=== PATIENT | male | born 1965 | race Caucasian/White ===

== ENCOUNTER → 2021-09-26 | Day surgery (SDC) | payer OTHER ==
[~2021-09-26] VITALS: Ht 195.6 cm; Wt 103.0 kg
[~2021-09-26] MED LIST: HYDROmorphone 2 MG/ML INJ. IVP PRN; IV RINGERS,LACTATED 1000ML 1,000 ML IV SCH; LEVO50TA PO; LIDOCAINE 2% PF 5 ML VIAL. ONE; MORPHINE SULFATE 2 MG/ML INJ. IVP PRN; PROCHLORPERAZINE 10 MG/2 ML VIAL. IVP PRN; PROPOFOL 10 MG/ML (20ML) VIAL. IV ONE; fentaNYL PF VIAL 100 MCG/2 ML VIAL IVP PRN
[2021-09-26 06:46] VITALS: BP 152/76
--- NOTE | 2021-09-26 07:59 | CONS ---
DATE OF CONSULTATION: 09/26/2021 UPDATED HISTORY AND PHYSICAL REASON FOR CONSULTATION: Colorectal screening. REFERRING PHYSICIAN: Albina Steel. HISTORY OF PRESENT ILLNESS: A 56-year-old male with past medical history significant for esophageal reflux as well as hypothyroidism is seen for interval colonoscopy. He had a left lower quadrant pain prior to , which has since resolved. Bowel habits are regular without diarrhea or constipation. There has been no melena and/or hematochezia. Last colonoscopy was approximately 8 years ago without pathology and no family history of colon polyps or colon cancer is noted. He is otherwise without additional complaints. PAST MEDICAL HISTORY: Hypothyroidism, gastroesophageal reflux disease. ALLERGIES: None. MEDICATIONS: Levothyroxine daily. FAMILY HISTORY: Significant for diabetes with grandmother, hypertension in mother. CVA with grandfather. PAST SURGICAL HISTORY: Significant for cholecystectomy, knee surgery. SOCIAL HISTORY: He is a social drinker, nonsmoker. REVIEW OF SYSTEMS: Per records. PHYSICAL EXAMINATION: GENERAL: Reveals a well-nourished, well-developed male who is alert, cooperative, in no acute distress. VITAL SIGNS: Temp is 97.1, pulse 69, respiratory rate 18. LUNGS: Clear. CARDIOVASCULAR: Reveals an S1, S2, without S3, S4 or appreciable murmur. ABDOMEN: Reveals a soft abdomen, normal bowel sounds, without appreciable hepatosplenomegaly. Multiple surgical incisions. IMPRESSION: Colorectal screening is recommended at this time. Risks and benefits of procedure including risk of hemorrhage and perforation have been previously discussed and is willing to proceed. DARIEL DR: Nicolás TID: [id number]
[2021-09-26 08:20] VITALS: BP 132/99
--- NOTE | 2021-10-01 12:07 | PATHOLOGY ---
[facility] Accession Number: [id number] . 01 Material submitted: . sigmoid colon - SIGMOID COLON POLYP BIOPSY . 01 Clinical history: . CRC SCREEN, COLONOSCOPY . 02 Diagnosis: Large bowel "sigmoid colon polyp biopsy": - Hyperplastic polyp; negative for dysplasia and malignancy. - Fragment of large bowel mucosa with intramucosal lymphoid aggregate. (MLK:[facility]; 09/29/2021) QTP 09/29/2021 1528 Local . 02 Electronically signed: . Vignesh Claire MD, Pathologist NPI- [id number] . 01 Gross description: . The specimen is received in formalin, labeled "Brown, Kedar, sigmoid colon polyp biopsy". Received are 3 segments of pale hoffman tissue ranging in size from 0.2-0.3 cm in maximum dimension. The specimen is entirely submitted in cassette A1. ([facility]; 09/26/2021) NRI/NRI 09/26/2021 1826 Local . 02 Pathologist provided ICD-10: K63.5 . 02 CPT . 255570 Specimen Comment: A courtesy copy of this report has been sent to [phone], [phone] Specimen Comment: [id number] Specimen Comment: Report sent to / DR MANZANARES Specimen Comment: A duplicate report has been generated due to demographic updates. Performed at: 01 [facility] [address] [facility] [address], [place] [id number] MD Kareem Mcqueen MD Phone: [phone] Performed at: 02 [facility] [address] [id number] MD Didier Villalba MD Phone: [phone]
== END | disposition home or self-care (01) ==
LOC: ENDOS 06:18
PROVIDERS: ATTEND Internal Medicine Gastroenterology
DX: Z12.11 Encounter for screening for malignant neoplasm of colon (principal); K64.0 First degree hemorrhoids; K63.5 Polyp of colon; K63.89 Other specified diseases of intestine; E03.9 Hypothyroidism, unspecified; K21.9 Gastro-esophageal reflux disease without esophagitis; M19.90 Unspecified osteoarthritis, unspecified site; Z90.49 Acquired absence of other specified parts of digestive tract; Z98.890 Other specified postprocedural states; Z82.49 Family history of ischemic heart disease and other diseases of the circulatory system; Z83.3 Family history of diabetes mellitus
CPT/HCPCS: 45380; J2704